=== PATIENT | female | born 1980 ===

== ENCOUNTER 2024-01-01 16:37 | Outpatient (CLI) | payer BC | END 2024-01-01 23:59 | disposition home or self-care (01) | LOC: MRI 16:37 | PROVIDERS: ATTEND Family Medicine Sports Medicine | DX: M84.361A Stress fracture, right tibia, initial encounter for fracture (principal); M25.561 Pain in right knee; M22.41 Chondromalacia patellae, right knee; M25.461 Effusion, right knee; X58.XXXA Exposure to other specified factors, initial encounter; Y93.89 Activity, other specified; Y92.89 Other specified places as the place of occurrence of the external cause; Y99.8 Other external cause status | CPT/HCPCS: 73721 ==